=== PATIENT | male | born 1960 | race Caucasian/White ===

== ENCOUNTER 2018-09-19 08:49 | Inpatient (IN) | payer MEDICARE, MEDICAID | END 2018-09-21 11:10 | disposition home or self-care (01) | LOC: ER 08:49 → PCU 3S 11:18 | DX: I21.3 ST elevation (STEMI) myocardial infarction of unspecified site (principal); I48.0 Paroxysmal atrial fibrillation; G47.33 Obstructive sleep apnea (adult) (pediatric) ==

== ENCOUNTER 2022-09-27 09:26 | Day surgery (SDC) | payer MEDICARE, MEDICAID ==
[2022-09-22 10:06] LABS: BASOPHILS # (AUTO) 0.1 X10'3 (0-0.2); BASOPHILS % (AUTO) 0.8 % (0-1); EOSINOPHILS # (AUTO) 0.4 X10'3 (0-0.9); EOSINOPHILS % (AUTO) 4.1 % (0-6); HEMATOCRIT 42.2 % (42.0-52.0); HEMOGLOBIN 14.2 g/dl (14.0-17.9); LYMPHOCYTES # (AUTO) 1.5 X10'3 (1.1-4.8); MEAN CORPUSCULAR HEMOGLOBIN 30.6 PG (27.0-31.0); MEAN CORPUSCULAR HGB CONC 33.5 g/dL (33.0-36.5); MEAN CORPUSCULAR VOLUME 91.2 FL (78-98); MEAN PLATELET VOLUME 8.3 FL (7.4-10.4); MONOCYTES % (AUTO) 9.7 % (2-12); NEUTROPHILS # (AUTO) 7.5 X10'3 (1.8-7.7); NEUTROPHILS % (AUTO) 71.4 % (42-75); PLATELET COUNT 228 X10'3 (140-440); RED BLOOD COUNT 4.63 X10'6 (4.70-6.10); RED CELL DISTRIBUTION WIDTH 13.5 % (11.5-14.5); WHITE BLOOD COUNT 10.5 X10'3 (4.5-11.0)
[2022-09-22 10:09] LABS: APTT 28 SECONDS (22-32)
[2022-09-22 10:22] LABS: ANION GAP 7 (8-16); BLOOD UREA NITROGEN 18 MG/DL (7-18); BUN/CREATININE RATIO 21.7 (5.4-32.0); CALCIUM 9.3 MG/DL (8.5-10.1); CHLORIDE 102 MMOL/L (99-107); CHOL/HDL RATIO 3.9 (0.00-4.99); CHOLESTEROL 164 MG/DL (0-200); CREATININE 0.83 MG/DL (0.60-1.10); GLUCOSE 148 MG/DL (70-104); HDL CHOLESTEROL 42 MG/DL (35-60); LDL CHOLESTEROL 96 MG/DL (50-100); POTASSIUM 3.5 MMOL/L (3.5-5.1); SODIUM 140 MMOL/L (135-145); TOTAL CARBON DIOXIDE 31.3 MMOL/L (24-32); TRIGLYCERIDES 158 MG/DL (20-135); eGFR > 90 ML/MIN
[~2022-09-27] VITALS: Ht 182.9 cm; Wt 141.5 kg
[2022-09-27] VITALS (8 sets, daily range): BP systolic 103–141; BP diastolic 55–76
[~2022-09-27 09:26] MED LIST: ALLO300T8 PO; APIX5TAB3 PO; ASPI-1265 PO; ATOR-2 PO; CHOL100012 PO; LEVO150T8 PO; LISI5TAB22 PO; LOP25T PO; NITR0.4T51 SL; SERT25TA PO; TICA90TA PO
[2022-09-27] MEDS ORDERED: diphenhydrAMINE 25mg capsule PO PRN (09:50)
[2022-09-27] MEDS ORDERED: normal saline 1,000 ML IV SCH (09:50)
[2022-09-27] MEDS ORDERED: LORazepam 0.5 MG tablet PO PRN (09:50)
[2022-09-27] MEDS ORDERED: CLOP-32 PO (09:57)
[2022-09-27] MEDS ORDERED: MULT-227 PO (09:57)
[2022-09-27] MEDS ORDERED: vitamin b12 PO (09:57)
[2022-09-27] MEDS ORDERED: heparin 1,000unit/ml 10ml vial 10 ML ONE (11:32)
[2022-09-27] MEDS ORDERED: heparin 1,000 UNITS/NS 500ml 500 ML ONE ×2 (11:32→11:33)
[2022-09-27] MEDS ORDERED: iohexol 350MG/ML 100ml bottle IV ONE (11:32)
[2022-09-27] MEDS ORDERED: fentaNYL/PF 50MCG/1 ML 2ML syringe ONE (11:32)
[2022-09-27] MEDS ORDERED: midazolam 1 mg/ML 2ml injection ONE (11:32)
[2022-09-27] MEDS ORDERED: LIDOcaine 1% 30ml preserv. free vial ONE (11:45)
[2022-09-27] MEDS ORDERED: atropine 0.1mg/ml 10ml syringe ONE (12:49)
[2022-09-27] MEDS ORDERED: clopidogrel 300mg tablet ONE (13:03)
[2022-09-27] MEDS ORDERED: aspirin 325mg tablet ONE (13:03)
[2022-09-27] MEDS ORDERED: iohexol 350 MG/ML 50ML vial IV ONE (13:12)
[2022-09-27] MEDS ORDERED: HYDROcodone/acetaminophen 10/325mg tab PO PRN (14:10)
[2022-09-27] MEDS ORDERED: HYDROcodone/acetaminophen 5mg/325mg tablet PO PRN (14:10)
== END 2022-09-27 16:05 | disposition home or self-care (01) ==
LOC: SSTAY O 09:26
PROVIDERS: ATTEND Student in an Organized Health Care Education/Training Program
DX: T82.855A Stenosis of coronary artery stent, initial encounter (principal); I25.810 Atherosclerosis of coronary artery bypass graft(s) without angina pectoris; G47.33 Obstructive sleep apnea (adult) (pediatric); I25.2 Old myocardial infarction; I48.91 Unspecified atrial fibrillation; I11.0 Hypertensive heart disease with heart failure; I50.9 Heart failure, unspecified; E03.9 Hypothyroidism, unspecified; E78.5 Hyperlipidemia, unspecified; I73.00 Raynaud's syndrome without gangrene; Z79.82 Long term (current) use of aspirin; Z79.01 Long term (current) use of anticoagulants; Z79.899 Other long term (current) drug therapy; Y83.8 Other surgical procedures as the cause of abnormal reaction of the patient, or of later complication, without mention of misadventure at the time of the procedure; Y92.89 Other specified places as the place of occurrence of the external cause
CPT/HCPCS: 36415; 80048; 80061; 82948; 85025; 85610; 85730; 93005; 93455; 99152; 99153; C1725; C1751; C1760; C1769; C1874; C1887; C1892; C1894; C9600; J1644; J2250; J3010; J3490; J7030; Q0163; Q9967; 92928; 93459; J0461

== ENCOUNTER → 2024-01-18 | Outpatient (CLI) | payer BC, MEDICAID ==
[~2024-01-18] MED LIST changes: +CLOP-32 PO; -LISI5TAB22 PO; +MULT-227 PO; -TICA90TA PO; +vitamin b12 PO
[2024-01-18 13:49] LABS: BASOPHILS # (AUTO) 0.1 X10'3 (0-0.2); BASOPHILS % (AUTO) 0.8 % (0-1); EOSINOPHILS # (AUTO) 0.3 X10'3 (0-0.9); EOSINOPHILS % (AUTO) 2.4 % (0-6); HEMOGLOBIN 13.9 g/dl (14.0-17.9); LYMPHOCYTES # (AUTO) 2.1 X10'3 (1.1-4.8); MEAN CORPUSCULAR HEMOGLOBIN 31.5 PG (27.0-31.0); MEAN CORPUSCULAR HGB CONC 33.9 g/dL (33.0-36.5); MEAN CORPUSCULAR VOLUME 92.9 FL (78-98); MEAN PLATELET VOLUME 8.4 FL (7.4-10.4); MONOCYTES % (AUTO) 7.4 % (2-12); NEUTROPHILS # (AUTO) 9.5 X10'3 (1.8-7.7); NEUTROPHILS % (AUTO) 73.4 % (42-75); PLATELET COUNT 216 X10'3 (140-440); RED BLOOD COUNT 4.41 X10'6 (4.70-6.10); RED CELL DISTRIBUTION WIDTH 13.9 % (11.5-14.5)
[2024-01-18 13:51] LABS: APTT 27 SECONDS (22-32); PROTHROMBIN TIME 11.2 SECONDS (9.0-12.0)
[2024-01-18 13:53] LABS: ANION GAP 8 (8-16); BLOOD UREA NITROGEN 21 MG/DL (7-18); BUN/CREATININE RATIO 27.3 (10.0-20.0); CALCIUM 9.5 MG/DL (8.5-10.1); CHLORIDE 104 MMOL/L (99-107); CHOL/HDL RATIO 3.9 (0.00-4.99); CHOLESTEROL 172 MG/DL (0-200); CREATININE 0.77 MG/DL (0.60-1.10); GLUCOSE 113 MG/DL (70-104); HDL CHOLESTEROL 44 MG/DL (35-60); LDL CHOLESTEROL 99 MG/DL (50-100); POTASSIUM 3.4 MMOL/L (3.5-5.1); SODIUM 141 MMOL/L (135-145); TOTAL CARBON DIOXIDE 29.1 MMOL/L (24-32); TRIGLYCERIDES 168 MG/DL (20-135); eGFR > 90 ML/MIN
== END | disposition home or self-care (01) ==
LOC: LAB 13:00
PROVIDERS: ATTEND Internal Medicine Interventional Cardiology
DX: I50.9 Heart failure, unspecified (principal); E78.5 Hyperlipidemia, unspecified; I25.10 Atherosclerotic heart disease of native coronary artery without angina pectoris
CPT/HCPCS: 36415; 80048; 80061; 85025; 85610; 85730

== ENCOUNTER 2024-01-23 10:01 | Day surgery (SDC) | payer BC, MEDICAID ==
[~2024-01-23] VITALS: Ht 185.4 cm; Wt 137.5 kg
[2024-01-23] VITALS (10 sets, daily range): BP systolic 119–157; BP diastolic 50–68; PULSE 55–73; RESP 10–20; TEMP 98; O2SAT 92–96
[2024-01-23] MEDS ORDERED: SERT-434 PO (10:29)
[2024-01-23] MEDS ORDERED: SEMA0.258 SQ (10:29)
[2024-01-23] MEDS ORDERED: CHLO50TA PO (10:29)
[2024-01-23] MEDS ORDERED: METO50TA16 PO (10:29)
[2024-01-23] MEDS: LORazepam 0.5 MG tablet PO PRN (10:48)
[2024-01-23] MEDS: diphenhydrAMINE 25mg capsule PO PRN (10:48)
[2024-01-23] MEDS: normal saline 1,000 ML IV SCH (10:48)
[2024-01-23] MEDS ORDERED: LIDOcaine 1% 30ml preserv. free vial ONE (11:55)
[2024-01-23] MEDS ORDERED: fentaNYL/PF 50MCG/1 ML 2ML syringe ONE (11:55)
[2024-01-23] MEDS ORDERED: midazolam 1 mg/ML 2ml injection ONE (11:55)
[2024-01-23] MEDS ORDERED: iohexol 350MG/ML 100ml bottle IV ONE (11:56)
[2024-01-23] MEDS ORDERED: heparin 1,000unit/ml 10ml vial 0 ML ONE (11:56)
[2024-01-23] MEDS ORDERED: HYDROcodone/acetaminophen 10/325mg tab PO PRN (14:40)
[2024-01-23] MEDS ORDERED: HYDROcodone/acetaminophen 5mg/325mg tablet PO PRN (14:40)
== END 2024-01-23 15:58 | disposition home or self-care (01) ==
LOC: SSTAY O 10:01
PROVIDERS: ATTEND Student in an Organized Health Care Education/Training Program
DX: R94.39 Abnormal result of other cardiovascular function study (principal); I25.10 Atherosclerotic heart disease of native coronary artery without angina pectoris; I11.0 Hypertensive heart disease with heart failure; I50.9 Heart failure, unspecified; E78.00 Pure hypercholesterolemia, unspecified; E03.9 Hypothyroidism, unspecified; I48.0 Paroxysmal atrial fibrillation; I48.92 Unspecified atrial flutter; G47.33 Obstructive sleep apnea (adult) (pediatric); Z79.01 Long term (current) use of anticoagulants; Z79.890 Hormone replacement therapy; Z79.899 Other long term (current) drug therapy; Z95.1 Presence of aortocoronary bypass graft
CPT/HCPCS: 93005; 93459; 99152; 99153; J1644; J2250; J3010; J3490; J7030; Q0163; Q9967; A6258; C1760

== ENCOUNTER 2024-03-03 11:50 | Inpatient (IN) | payer BC, MEDICAID ==
[~2024-03-03] VITALS: Ht 185.4 cm; Wt 130.0 kg
[2024-03-03] VITALS (15 sets, daily range): BP systolic 138–158; BP diastolic 60–87; PULSE 61–67; RESP 14–17; TEMP 98.2–98.3; O2SAT 94–98
[~2024-03-03 11:50] MED LIST changes: -ASPI-1265 PO; +CHLO50TA PO; -CLOP-32 PO; -LOP25T PO; +METO50TA16 PO; +SEMA0.258 SQ; +SERT-434 PO; -SERT25TA PO
[2024-03-03 12:07] LABS: BASOPHILS # (AUTO) 0.1 X10'3 (0-0.2); BASOPHILS % (AUTO) 1.3 % (0-1); EOSINOPHILS # (AUTO) 0.2 X10'3 (0-0.9); EOSINOPHILS % (AUTO) 1.9 % (0-6); HEMATOCRIT 46.7 % (42.0-52.0); HEMOGLOBIN 16.1 g/dl (14.0-17.9); LYMPHOCYTES # (AUTO) 3.3 X10'3 (1.1-4.8); LYMPHOCYTES % (AUTO) 39.1 % (21-51); MEAN CORPUSCULAR HEMOGLOBIN 31.6 PG (27.0-31.0); MEAN CORPUSCULAR HGB CONC 34.6 g/dL (33.0-36.5); MEAN CORPUSCULAR VOLUME 91.5 FL (78-98); MEAN PLATELET VOLUME 7.7 FL (7.4-10.4); MONOCYTES # (AUTO) 0.6 X10'3 (0-0.9); MONOCYTES % (AUTO) 7.4 % (2-12); NEUTROPHILS # (AUTO) 4.2 X10'3 (1.8-7.7); NEUTROPHILS % (AUTO) 50.3 % (42-75); PLATELET COUNT 353 X10'3 (140-440); RED CELL DISTRIBUTION WIDTH 13.5 % (11.5-14.5); WHITE BLOOD COUNT 8.4 X10'3 (4.5-11.0)
[2024-03-03] MEDS ORDERED: amiodarone/D5 360MG/200ML BAG 200 ML IV SCH (12:10)
[2024-03-03] MEDS: amiodarone 150mg/dext, iso-os 100 ML IV ONE (12:10)
[2024-03-03] MEDS: amiodarone/D5 360MG/200ML BAG 200 ML IV SCH (12:11)
[2024-03-03] MEDS ORDERED: LIDOcaine 1% 30ml preserv. free vial ONE (12:24)
[2024-03-03 12:27] LABS: BASOPHILS # (AUTO) 0.1 X10'3 (0-0.2); BASOPHILS % (AUTO) 0.5 % (0-1); EOSINOPHILS # (AUTO) 0.3 X10'3 (0-0.9); EOSINOPHILS % (AUTO) 1.5 % (0-6); HEMATOCRIT 44.3 % (42.0-52.0); HEMOGLOBIN 15.1 g/dl (14.0-17.9); LYMPHOCYTES # (AUTO) 2.5 X10'3 (1.1-4.8); LYMPHOCYTES % (AUTO) 13.7 % (21-51); MEAN CORPUSCULAR HGB CONC 34.1 g/dL (33.0-36.5); MEAN CORPUSCULAR VOLUME 90.9 FL (78-98); MEAN PLATELET VOLUME 7.8 FL (7.4-10.4); MONOCYTES # (AUTO) 1.5 X10'3 (0-0.9); MONOCYTES % (AUTO) 8.4 % (2-12); NEUTROPHILS # (AUTO) 13.6 X10'3 (1.8-7.7); NEUTROPHILS % (AUTO) 75.9 % (42-75); PLATELET COUNT 361 X10'3 (140-440); RED BLOOD COUNT 4.87 X10'6 (4.70-6.10); RED CELL DISTRIBUTION WIDTH 13.3 % (11.5-14.5); WHITE BLOOD COUNT 17.9 X10'3 (4.5-11.0)
[2024-03-03] MEDS: magnesium sulf-water 2g/50mL 50 ML IV ONE (12:29)
[2024-03-03] MEDS: fentaNYL/PF 50MCG/1 ML 2ML syringe IV ONE (12:29)
[2024-03-03 12:48] LABS: ALANINE AMINOTRANSFERASE 39 U/L (12-78); ALBUMIN 3.9 G/DL (3.4-5.0); ALBUMIN/GLOBULIN RATIO 1.1 (1.1-1.5); ALKALINE PHOSPHATASE 93 IU/L (46-116); ANION GAP 13 (8-16); ASPARTATE AMINO TRANSFERASE 28 U/L (10-37); BILIRUBIN,TOTAL 0.8 MG/DL (0.1-1.0); BLOOD UREA NITROGEN 21 MG/DL (7-18); BUN/CREATININE RATIO 19.8 (10.0-20.0); CALCIUM 9.3 MG/DL (8.5-10.1); CHLORIDE 101 MMOL/L (99-107); CREATININE 1.06 MG/DL (0.60-1.10); GLUCOSE 208 MG/DL (70-104); SODIUM 138 MMOL/L (135-145); TOTAL CARBON DIOXIDE 23.9 MMOL/L (24-32); TOTAL PROTEIN 7.6 G/DL (6.4-8.2); eCRCL 79 ML/MIN; eGFR 70 ML/MIN
[2024-03-03 12:49] LABS: POTASSIUM 2.4 MMOL/L (3.5-5.1)
[2024-03-03] MEDS ORDERED: atropine 0.1mg/ml 10ml syringe ONE (12:52)
[2024-03-03] MEDS ORDERED: epiNEPHrine 0.1mg/ml 10ml syringe ONE (12:52)
[2024-03-03] MEDS ORDERED: heparin 25,000 UNIT/250ml bag 250 ML IV ONE (13:01)
[2024-03-03] MEDS ORDERED: potassium Cl 20mEq/100mL bag 100 ML IV ONE (13:11)
[2024-03-03] MEDS ORDERED: iohexol 350 MG/ML 50ML vial IV ONE ×2 (13:17→13:46)
[2024-03-03] MEDS ORDERED: ticagrelor 90mg tablet ONE (13:34)
[2024-03-03] MEDS ORDERED: midazolam 1 mg/ML 2ml injection ONE (13:46)
[2024-03-03] MEDS ORDERED: verapamil 2.5 mg/ml inj IV ONE (13:46)
[2024-03-03] MEDS ORDERED: LIDOcaine 1% (10mg/ml) 2ml vial ONE (13:46)
[2024-03-03] MEDS ORDERED: fentaNYL/PF 50MCG/1 ML 2ML syringe ONE (13:46)
[2024-03-03] MEDS ORDERED: iohexol 350MG/ML 100ml bottle IV ONE (13:47)
[2024-03-03] MEDS ORDERED: heparin 1,000unit/ml 10ml vial 10 ML ONE (13:47)
[2024-03-03] MEDS ORDERED: OZEMPIC SQ SCH (14:15)
[2024-03-03] MEDS ORDERED: nitroGLYCERIN 0.4mg SUBLingual tab SL PRN (14:15)
[2024-03-03] MEDS ORDERED: HYDROcodone/acetaminophen 5mg/325mg tablet PO PRN (14:20)
[2024-03-03] MEDS: OZEMPIC SQ SCH (14:28)
[2024-03-03] MEDS ORDERED: nitroGLYCERIN 500mcg/5mL D5W 5 ML IV ONE (14:48)
[2024-03-03] MEDS: ticagrelor 90mg tablet PO ONE (15:16)
[2024-03-03] MEDS ORDERED: LEVO200T8 PO (16:07)
[2024-03-03 19:13] LABS: BASOPHILS # (AUTO) 0.1 X10'3 (0-0.2); BASOPHILS % (AUTO) 0.4 % (0-1); EOSINOPHILS # (AUTO) 0.1 X10'3 (0-0.9); EOSINOPHILS % (AUTO) 0.3 % (0-6); HEMATOCRIT 40.8 % (42.0-52.0); HEMOGLOBIN 13.9 g/dl (14.0-17.9); LYMPHOCYTES # (AUTO) 1.8 X10'3 (1.1-4.8); LYMPHOCYTES % (AUTO) 10.9 % (21-51); MEAN CORPUSCULAR HEMOGLOBIN 31.2 PG (27.0-31.0); MEAN CORPUSCULAR VOLUME 91.6 FL (78-98); MEAN PLATELET VOLUME 7.6 FL (7.4-10.4); MONOCYTES # (AUTO) 1.2 X10'3 (0-0.9); MONOCYTES % (AUTO) 7.3 % (2-12); NEUTROPHILS # (AUTO) 13.3 X10'3 (1.8-7.7); NEUTROPHILS % (AUTO) 81.1 % (42-75); PLATELET COUNT 280 X10'3 (140-440); RED BLOOD COUNT 4.46 X10'6 (4.70-6.10); RED CELL DISTRIBUTION WIDTH 13.5 % (11.5-14.5); WHITE BLOOD COUNT 16.4 X10'3 (4.5-11.0)
[2024-03-03 19:31] LABS: ALANINE AMINOTRANSFERASE 41 U/L (12-78); ALBUMIN 3.6 G/DL (3.4-5.0); ALKALINE PHOSPHATASE 88 IU/L (46-116); ANION GAP 9 (8-16); ASPARTATE AMINO TRANSFERASE 100 U/L (10-37); BILIRUBIN,TOTAL 0.5 MG/DL (0.1-1.0); BLOOD UREA NITROGEN 16 MG/DL (7-18); BUN/CREATININE RATIO 23.2 (10.0-20.0); CALCIUM 8.7 MG/DL (8.5-10.1); CHLORIDE 101 MMOL/L (99-107); CREATININE 0.69 MG/DL (0.60-1.10); GLUCOSE 128 MG/DL (70-104); MAGNESIUM 1.9 MG/DL (1.5-2.4); PHOSPHORUS 3.8 MG/DL (2.3-4.5); SODIUM 137 MMOL/L (135-145); TOTAL CARBON DIOXIDE 26.8 MMOL/L (24-32); TOTAL PROTEIN 7.1 G/DL (6.4-8.2); eCRCL 121 ML/MIN; eGFR > 90 ML/MIN
[2024-03-03 19:35] LABS: POTASSIUM 2.7 MMOL/L (3.5-5.1)
[2024-03-03] MEDS ORDERED: potassium Cl 40MEQ/270ML bag 250 ML IV PRN (20:15)
[2024-03-03] MEDS ORDERED: potassium CL 10mEq/100ml bag 100 ML IV PRN (20:15)
[2024-03-03] MEDS: magnesium sulf-water 4G/100mL 100 ML IV PRN (20:30)
[2024-03-03] MEDS: potassium Cl 20mEq/100mL bag 100 ML IV PRN (20:30)
[2024-03-03] MEDS: metoprolol tartrate 50mg tablet PO SCH (21:14)
[2024-03-03] MEDS: sertraline 50mg tablet PO SCH (21:14)
[2024-03-03] MEDS: atorvastatin 20mg tablet PO SCH (21:14)
[2024-03-03] MEDS ORDERED: heparin 25,000 UNIT/250ml bag 250 ML IV PRN (22:55)
[2024-03-03] MEDS: calcium carbonate 500mg chew tablet PO PRN (23:01)
[2024-03-03] MEDS: heparin 10,000 units/1 ML INJ IV PRN (23:08)
[2024-03-03] MEDS: MESSAGE TO NURSING IV ONE (23:23)
[2024-03-04] VITALS (21 sets, daily range): BP systolic 90–156; BP diastolic 51–73; PULSE 56–75; RESP 14–20; TEMP 97.8; O2SAT 92–98
[2024-03-04 03:52] LABS: ALANINE AMINOTRANSFERASE 44 U/L (12-78); ALBUMIN 3.5 G/DL (3.4-5.0); ALKALINE PHOSPHATASE 88 IU/L (46-116); ANION GAP 10 (8-16); ASPARTATE AMINO TRANSFERASE 149 U/L (10-37); BILIRUBIN,TOTAL 0.6 MG/DL (0.1-1.0); BLOOD UREA NITROGEN 12 MG/DL (7-18); CALCIUM 8.9 MG/DL (8.5-10.1); CHLORIDE 101 MMOL/L (99-107); CREATININE 0.63 MG/DL (0.60-1.10); GLUCOSE 129 MG/DL (70-104); MAGNESIUM 2.1 MG/DL (1.5-2.4); PHOSPHORUS 3.1 MG/DL (2.3-4.5); POTASSIUM 3.1 MMOL/L (3.5-5.1); SODIUM 137 MMOL/L (135-145); TOTAL CARBON DIOXIDE 26.5 MMOL/L (24-32); TOTAL PROTEIN 7.1 G/DL (6.4-8.2); eCRCL 132 ML/MIN; eGFR > 90 ML/MIN
[2024-03-04] MEDS: magnesium sulf-water 2g/50mL 50 ML IV PRN (04:11)
[2024-03-04] MEDS: HYDROcodone/acetaminophen 10/325mg tab PO PRN (05:29)
[2024-03-04] MEDS: mag hydrox/Alum hydrox/simeth 30ml oral suspension PO PRN (05:30)
[2024-03-04] MEDS: cyclobenzaprine 10mg tablet PO PRN (05:30)
[2024-03-04 06:14] LABS: BASOPHILS % 0 % (0-2); EOSINOPHILS # (AUTO) 0.2 X10'3 (0-0.9); EOSINOPHILS % (AUTO) 1 % (0-5); HEMATOCRIT 38.6 % (43.5-53.7); HEMOGLOBIN 13.4 G/DL (12.5-16.3); LYMPHOCYTES # (AUTO) 2.9 X10'3 (0.6-4.1); LYMPHOCYTES % 17 % (24-44); MEAN CORPUSCULAR HEMOGLOBIN 31.2 PG (27-31.2); MEAN CORPUSCULAR HGB CONC 34.8 % (32-36); MEAN CORPUSCULAR VOLUME 89.8 FL (81-97); MONOCYTES # (AUTO) 1.4 X10'3 (0-0.9); MONOCYTES % 8 % (0-12); NEUTROPHILS # (AUTO) 12.6 X10'3 (>=1.4); PLATELET COUNT 300 X10'3 (130-400); RED BLOOD COUNT 4.29 X10'6 (4.30-5.90); RED CELL DISTRIBUTION WIDTH 13.5 % (11-16); SEGMENTED NEUTROPHILS % 73 % (36-66); WHITE BLOOD COUNT 17.3 X10'3 (4.5-11.0)
[2024-03-04] MEDS: cyanocobalamin 500mcg tablet PO SCH (08:39)
[2024-03-04] MEDS: allopurinol 300 MG tablet PO SCH (08:40)
[2024-03-04] MEDS: ticagrelor 90mg tablet PO SCH (08:40)
[2024-03-04] MEDS: multivitamins, therapeutics tablet PO SCH (08:40)
[2024-03-04] MEDS: cholecalciferol (vitamin D3) 1,000 unit (25mcg) tablet PO SCH (08:46)
[2024-03-04] MEDS: levoTHYROXINE 100mcg tablet PO SCH (08:46)
[2024-03-04] MEDS: chlorthalidone 25mg tablet PO SCH (08:46)
[2024-03-04] MEDS: morphine 4 MG/ML inj SYRINge IV PRN (11:49)
[2024-03-04] MEDS: LIDOcaine 5% patch TP SCH (12:51)
[2024-03-04] MEDS: LORazepam 2 mg/ml vial IM ONE (12:57)
[2024-03-04] MEDS: clopidogrel 300mg tablet PO ONE (16:30)
[2024-03-05] VITALS (8 sets, daily range): BP systolic 105–120; BP diastolic 49–71; PULSE 60–78; RESP 15–26; TEMP 97–98.4; O2SAT 93–98
[2024-03-05 05:31] LABS: BASOPHILS # (AUTO) 0.1 X10'3 (0-0.2); BASOPHILS % (AUTO) 0.6 % (0-1); EOSINOPHILS # (AUTO) 0.3 X10'3 (0-0.9); EOSINOPHILS % (AUTO) 1.9 % (0-6); HEMATOCRIT 39.3 % (42.0-52.0); LYMPHOCYTES # (AUTO) 1.7 X10'3 (1.1-4.8); LYMPHOCYTES % (AUTO) 12.5 % (21-51); MEAN CORPUSCULAR HEMOGLOBIN 30.6 PG (27.0-31.0); MEAN CORPUSCULAR HGB CONC 33.1 g/dL (33.0-36.5); MEAN CORPUSCULAR VOLUME 92.4 FL (78-98); MEAN PLATELET VOLUME 7.7 FL (7.4-10.4); MONOCYTES # (AUTO) 1.4 X10'3 (0-0.9); MONOCYTES % (AUTO) 10.5 % (2-12); NEUTROPHILS # (AUTO) 10.1 X10'3 (1.8-7.7); NEUTROPHILS % (AUTO) 74.5 % (42-75); PLATELET COUNT 225 X10'3 (140-440); RED BLOOD COUNT 4.25 X10'6 (4.70-6.10); RED CELL DISTRIBUTION WIDTH 13.7 % (11.5-14.5); WHITE BLOOD COUNT 13.6 X10'3 (4.5-11.0)
[2024-03-05 05:46] LABS: HEMOGLOBIN A1C 6.1 % (4.5-6.2)
[2024-03-05 06:10] LABS: ALANINE AMINOTRANSFERASE 32 U/L (12-78); ALBUMIN 3.2 G/DL (3.4-5.0); ALBUMIN/GLOBULIN RATIO 0.9 (1.1-1.5); ALKALINE PHOSPHATASE 88 IU/L (46-116); ANION GAP 9 (8-16); ASPARTATE AMINO TRANSFERASE 87 U/L (10-37); BILIRUBIN,TOTAL 1.1 MG/DL (0.1-1.0); BLOOD UREA NITROGEN 9 MG/DL (7-18); BUN/CREATININE RATIO 11.8 (10.0-20.0); CALCIUM 8.9 MG/DL (8.5-10.1); CHLORIDE 100 MMOL/L (99-107); CHOL/HDL RATIO 3.6 (0.00-4.99); CHOLESTEROL 150 MG/DL (0-200); CREATININE 0.76 MG/DL (0.60-1.10); GLUCOSE 110 MG/DL (70-104); HDL CHOLESTEROL 42 MG/DL (35-60); LDL CHOLESTEROL 86 MG/DL (50-100); MAGNESIUM 1.5 MG/DL (1.5-2.4); PHOSPHORUS 2.8 MG/DL (2.3-4.5); POTASSIUM 3.2 MMOL/L (3.5-5.1); SODIUM 136 MMOL/L (135-145); THYROID STIMULATING HORMONE 7.74 ulU/ml (0.34-4.50); TOTAL CARBON DIOXIDE 27.4 MMOL/L (24-32); TOTAL PROTEIN 6.9 G/DL (6.4-8.2); TRIGLYCERIDES 126 MG/DL (20-135); eCRCL 110 ML/MIN; eGFR > 90 ML/MIN
[2024-03-05] MEDS: apixaban 5mg tablet PO SCH (07:29)
[2024-03-05] MEDS: potassium Cl 20 mEq SR tablet PO PRN (07:29)
[2024-03-05] MEDS: clopidogrel 75mg tablet PO SCH (07:30)
[2024-03-05] MEDS: aspirin 81mg tab.chew PO SCH (07:35)
[2024-03-05] MEDS: magnesium sulf-water 2g/50mL 50 ML IV ONE (10:49)
[2024-03-05] MEDS: clopidogrel 300mg tablet PO ONE (12:50)
[2024-03-05] MEDS: amiodarone 200mg tablet PO SCH (20:29)
[2024-03-05] MEDS: potassium Cl 40MEQ/1/2NS 520ml 520 ML IV PRN (22:30)
[2024-03-05] MEDS: potassium Cl 20 mEq SR tablet PO STA (23:28)
[2024-03-06 02:00] VITALS: BP 104/66; PULSE 84; RESP 19; TEMP 97; O2SAT 98
[2024-03-06 06:00] VITALS: BP 104/71; PULSE 107; RESP 15; TEMP 97.7; O2SAT 97
[2024-03-06 06:20] LABS: BASOPHILS # (AUTO) 0.1 X10'3 (0-0.2); BASOPHILS % (AUTO) 0.6 % (0-1); EOSINOPHILS # (AUTO) 0.4 X10'3 (0-0.9); EOSINOPHILS % (AUTO) 3.7 % (0-6); HEMATOCRIT 40.3 % (42.0-52.0); HEMOGLOBIN 14.1 g/dl (14.0-17.9); LYMPHOCYTES # (AUTO) 1.4 X10'3 (1.1-4.8); LYMPHOCYTES % (AUTO) 13.3 % (21-51); MEAN CORPUSCULAR HGB CONC 34.9 g/dL (33.0-36.5); MEAN CORPUSCULAR VOLUME 91.7 FL (78-98); MEAN PLATELET VOLUME 8.2 FL (7.4-10.4); MONOCYTES # (AUTO) 1.2 X10'3 (0-0.9); MONOCYTES % (AUTO) 11.2 % (2-12); NEUTROPHILS # (AUTO) 7.6 X10'3 (1.8-7.7); NEUTROPHILS % (AUTO) 71.2 % (42-75); PLATELET COUNT 220 X10'3 (140-440); RED CELL DISTRIBUTION WIDTH 13.6 % (11.5-14.5); WHITE BLOOD COUNT 10.6 X10'3 (4.5-11.0)
[2024-03-06 07:21] LABS: ALANINE AMINOTRANSFERASE 32 U/L (12-78); ALBUMIN 3.2 G/DL (3.4-5.0); ALBUMIN/GLOBULIN RATIO 0.8 (1.1-1.5); ALKALINE PHOSPHATASE 86 IU/L (46-116); ANION GAP 9 (8-16); ASPARTATE AMINO TRANSFERASE 42 U/L (10-37); BILIRUBIN,TOTAL 0.9 MG/DL (0.1-1.0); BLOOD UREA NITROGEN 13 MG/DL (7-18); BUN/CREATININE RATIO 18.6 (10.0-20.0); CALCIUM 9.2 MG/DL (8.5-10.1); CHLORIDE 102 MMOL/L (99-107); GLUCOSE 116 MG/DL (70-104); POTASSIUM 3.5 MMOL/L (3.5-5.1); SODIUM 138 MMOL/L (135-145); TOTAL CARBON DIOXIDE 27.4 MMOL/L (24-32); TOTAL PROTEIN 7.1 G/DL (6.4-8.2); eCRCL 119 ML/MIN; eGFR > 90 ML/MIN
[2024-03-06 11:00] VITALS: BP 101/63; PULSE 81; RESP 14; TEMP 97.9; O2SAT 96
[2024-03-06] MEDS ORDERED: ASPI81TA53 PO (12:26)
[2024-03-06] MEDS ORDERED: AMI200T PO (12:26)
[2024-03-06] MEDS ORDERED: CLOP75TA34 PO (12:26)
== END 2024-03-06 15:05 | disposition home or self-care (01) | DRG 250 ==
LOC: ER 11:51 → CICU 2S 12:18 → UNDOADMIN 14:08 → CICU 2S 14:08 → PCU 3S 03-04 17:50
PROVIDERS: ADMIT Internal Medicine Critical Care Medicine; ATTEND Internal Medicine Critical Care Medicine
PROC: 02703ZZ Dilation of Coronary Artery, One Artery, Percutaneous Approach (ICD-10-PCS; principal; 2024-03-03)
PROC: 4A023N7 Measurement of Cardiac Sampling and Pressure, Left Heart, Percutaneous Approach (ICD-10-PCS; 2024-03-03)
PROC: B3101ZZ Fluoroscopy of Thoracic Aorta using Low Osmolar Contrast (ICD-10-PCS; 2024-03-03)
PROC: B2111ZZ Fluoroscopy of Multiple Coronary Arteries using Low Osmolar Contrast (ICD-10-PCS; 2024-03-03)
PROC: B2181ZZ Fluoroscopy of Left Internal Mammary Bypass Graft using Low Osmolar Contrast (ICD-10-PCS; 2024-03-03)
PROC: B2131ZZ Fluoroscopy of Multiple Coronary Artery Bypass Grafts using Low Osmolar Contrast (ICD-10-PCS; 2024-03-03)
PROC: B2151ZZ Fluoroscopy of Left Heart using Low Osmolar Contrast (ICD-10-PCS; 2024-03-03)
PROC: B41F1ZZ Fluoroscopy of Right Lower Extremity Arteries using Low Osmolar Contrast (ICD-10-PCS; 2024-03-03)
DX: T82.867A Thrombosis due to cardiac prosthetic devices, implants and grafts, initial encounter (principal); I21.4 Non-ST elevation (NSTEMI) myocardial infarction; I46.9 Cardiac arrest, cause unspecified; I49.01 Ventricular fibrillation; I47.20 Ventricular tachycardia, unspecified; E03.9 Hypothyroidism, unspecified; M10.9 Gout, unspecified; I48.0 Paroxysmal atrial fibrillation; Y83.1 Surgical operation with implant of artificial internal device as the cause of abnormal reaction of the patient, or of later complication, without mention of misadventure at the time of the procedure; G47.33 Obstructive sleep apnea (adult) (pediatric); E78.00 Pure hypercholesterolemia, unspecified; I25.10 Atherosclerotic heart disease of native coronary artery without angina pectoris; I73.00 Raynaud's syndrome without gangrene; E87.6 Hypokalemia; D72.829 Elevated white blood cell count, unspecified; Y83.2 Surgical operation with anastomosis, bypass or graft as the cause of abnormal reaction of the patient, or of later complication, without mention of misadventure at the time of the procedure; E83.42 Hypomagnesemia; T82.898A Other specified complication of vascular prosthetic devices, implants and grafts, initial encounter; R73.03 Prediabetes; E66.01 Morbid (severe) obesity due to excess calories; I10 Essential (primary) hypertension; Z68.37 Body mass index [BMI] 37.0-37.9, adult; Z82.49 Family history of ischemic heart disease and other diseases of the circulatory system; Z82.41 Family history of sudden cardiac death; Z82.0 Family history of epilepsy and other diseases of the nervous system; Z82.3 Family history of stroke; Z82.5 Family history of asthma and other chronic lower respiratory diseases; Z95.1 Presence of aortocoronary bypass graft; I25.2 Old myocardial infarction; Z79.899 Other long term (current) drug therapy; Z90.49 Acquired absence of other specified parts of digestive tract; Y92.89 Other specified places as the place of occurrence of the external cause
CPT/HCPCS: 36415; 71045; 76937; 80053; 80061; 82948; 83036; 83735; 84100; 84132; 84443; 84484; 85025; 85347; 85730; 87081; 92920; 93005; 93306; 93459; 93567; 99152; 99153; 99291; A6213; A6258; A6449; C1725; C1751; C1769; C1894; G0378; J0171; J0282; J0461; J1644; J2060; J2250; J2270; J3010; J3475; J3480; J3490; J7030; J7040; Q9967

== ENCOUNTER 2024-05-01 09:59 | Outpatient (CLI) | payer BC, MEDICAID ==
[~2024-05-01 09:59] MED LIST changes: +AMI200T PO; +ASPI81TA53 PO; +CLOP75TA34 PO; -LEVO150T8 PO; +LEVO200T8 PO
== END 2024-05-01 23:59 | disposition home or self-care (01) ==
LOC: RAD 09:59
PROVIDERS: ATTEND Student in an Organized Health Care Education/Training Program
DX: D72.828 Other elevated white blood cell count (principal)
CPT/HCPCS: 36415

== ENCOUNTER 2025-06-16 08:42 | Outpatient (CLI) | payer BC, MEDICAID ==
[~2025-06-16 08:42] MED LIST changes: +ALBU2.5V7 NEB; -AMI200T PO; +AMIO200T76 PO; +CEFD300C3 PO; -CHLO50TA PO; +CLOP-32 PO; -CLOP75TA34 PO; +FLUT1DIS4 INH; -METO50TA16 PO; +MIDO5TAB4 PO; +PANT40TA54 PO; -SERT-434 PO
--- NOTE | 2025-06-16 11:30 | RADIOLOGY REPORT ---
EXAM: CT CT ABD-DIAPHRAGM TO CREST ONLY HISTORY: EPIGASTRIC PAIN Comparison Study: CT CT ABDOMEN PELVIS W/ IV CONTRAST on DOS: 02/01/25 Exam Date: 06/16/2025 08:57 AM Radiation Dose Information: CT Dose: CTDI volume is 34 mGy. Dose-length product is 902 mGy*cm Technique: Multidetector CT of the abdomen was performed. Imaging was performed without IV contrast. Axial, coronal and sagittal multiplanar reformats were obtained from the axial data set by the technologist. Findings: Lack of intravenous contrast compromises evaluation of perfusion and for isodense lesions. Lower chest: Bibasilar atelectasis/scarring. Liver: Unremarkable Biliary system: Unremarkable Spleen: Unremarkable Pancreas: Diffusely atrophic. Adrenals: Unremarkable. Kidneys: No hydronephrosis. No renal calculi. Bowel: No obstruction in the visualized loops of bowel. Lymph nodes: Unremarkable. Peritoneum: Unremarkable Vessels: Patency not evaluated on this noncontrast study. Bones and soft tissue: No aggressive osseous lesion in the visualized lumbar spine IMPRESSION: No acute CT findings in the abdomen.
--- NOTE | 2025-06-16 17:18 | CARDIOLOGY REPORT ---
APPROVED REPORT EXAM: Comprehensive 2D, Doppler, and color-flow Echocardiogram. Patient Location: OUTPATIENT Heart Rate: 80's bpm Rhythm: SINUS Indications CONGESTIVE HEART FAILURE CABG x5 2011 STENTS x? UNKNOWN Global Technical Writer: Bree Pratt MD Previous echo: [facility] 02/01/25 EF 50-55%, RVE, RVSP 31 mmHg, mTR, LAE, modMR, Aide 2D Dimensions RVDd 3.5 cm IVSd 1.0 (0.7-1.1cm) LVDd 6.0 cm PWd 1.0 (0.7-1.1cm) IVSs 1.2 (0.8-1.2cm) LVDs 4.4 (2.5-4.0cm) PWs 1.2 (0.8-1.2cm) LVOT Diameter 2.30 (1.8-2.4cm) LVEF(%) 51.0 (>50%) IVC 18.62 mm FS (%) 26.5 % SV 93.2 ml M-Mode Dimensions Left Atrium(MM) 4.30 (2.5-4.0cm) Aortic Root 3.60 (2.2-3.7cm) Aortic Valve AoV Peak José Luis. 147.9 cm/s AoV VTI 26.1 cm AO Peak GR. 8.8 mmHg AO Mean GR. 5 mmHg LVOT VTI 21.81 cm LVOT Peak José Luis. 116.6 cm/s THAO (VMAX) 3.26 cm2 THAO (VTI) 3.46 cm2 Mitral Valve MV PHT 73 ms MVA (PHT) 3.03 cm2 Tricuspid Valve TR P. Velocity 253 cm/s RAP ESTIMATE 10 mmHg TR Peak Gr. 26 mmHg RVSP 36 mmHg LEFT VENTRICLE Normal LV size and wall thickness. Overall systolic function is mildly reduced. LVEF is 45-50%. RIGHT VENTRICLE RV is mildly dilated with normal function. Elevated right heart pressures with an RVSP of 36 mmHg. ATRIA Left atrium is mildly dilated. AORTIC VALVE Trileaflet AV appears mildly sclerotic without stenosis. Trace insufficiency. MITRAL VALVE Mild MV annular calcification without stenosis. Moderate regurgitation. TRICUSPID VALVE TV appears structurally normal with trace regurgitation. PULMONIC VALVE Normal PV without stenosis, physiologic insufficiency. GREAT VESSELS The aortic root is normal in size. IVC is normal in size and collapses greater than 50% with inspiration. PERICARDIUM Normal pericardium. No effusion. Other Information Study Quality: Adequate Conclusion Normal LV size and wall thickness. Overall systolic function is mildly reduced. LVEF is 45-50%. RV is mildly dilated with normal function. Elevated right heart pressures with an RVSP of 36 mmHg. Left atrium is mildly dilated. Trileaflet AV appears mildly sclerotic without stenosis. Trace insufficiency. Mild MV annular calcification without stenosis. Moderate regurgitation. TV appears structurally normal with trace regurgitation. Normal pericardium. No effusion.
== END 2025-06-16 23:59 | disposition home or self-care (01) ==
LOC: RAD 08:42
PROVIDERS: ATTEND Student in an Organized Health Care Education/Training Program
DX: I08.8 Other rheumatic multiple valve diseases (principal); I50.22 Chronic systolic (congestive) heart failure; R10.13 Epigastric pain
CPT/HCPCS: 74150; 93306